=== PATIENT | female | born 1970 ===

== ENCOUNTER 2018-10-29 20:36 | Emergency (ER) | payer MEDICAID ==
[2018-10-29 20:44] VITALS: BMI 21.9
[2018-10-29 20:50] VITALS: TEMP 98; O2SAT 100
--- NOTE | 2018-10-29 21:04 | ED PDOC ---
Arrival/HPI - General Chief Complaint: Dizziness/Lightheaded Time Seen by Provider: 10/29/18 20:47 Historian: Patient - History of Present Illness Narrative History of Present Illness (Text): 10/29/18 21:05 48 year old female, whose past medical history includes SVT and anxiety, presents to the emergency department with headache dizziness and palpitations. Patient was in the ER with her critically ill sister when she began feeling lightheaded, and palpitations. Patient states she became anxious and dizzy while with her sister. Patient states she feels a pounding headache. Patient denies any fever, chills, chest pain, shortness of breath, cough, abdominal pain, vomiting, diarrhea, or any other complaints. Time/Duration: Prior to Arrival Symptom Onset: Gradual Symptom Course: Unchanged Quality: Throbbing Activities at Onset: Light, Emotional Upset Context: Other (in ED) Past Medical History - Provider Review Nursing Documentation Reviewed: Yes - Infectious Disease Hx of Infectious Diseases: None - Tetanus Immunization Tetanus Immunization: Unknown - Cardiac Hx Cardiac Disorders: Yes Hx Cardiac Arrhythmia: Yes (svt with ablation) - Pulmonary Hx Respiratory Disorders: Yes Hx Emphysema: Yes - Neurological Hx Neurological Disorder: Yes Hx Headaches: Yes - HEENT Hx HEENT Disorder: No - Renal Hx Renal Disorder: No - Endocrine/Metabolic Hx Endocrine Disorders: No - Hematological/Oncological Hx Blood Disorders: No - Integumentary Hx Dermatological Disorder: No - Musculoskeletal/Rheumatological Hx Musculoskeletal Disorders: Yes Hx Back Pain: Yes - Gastrointestinal Hx Gastrointestinal Disorders: Yes (HERNIA HIATAL,CONSTIPATION) - Genitourinary/Gynecological Hx Genitourinary Disorders: No - Psychiatric Hx Psychophysiologic Disorder: Yes Hx Anxiety: Yes Hx Substance Use: No - Surgical History Hx Cardiac Catheterization: Yes (CARDIAC ABLATION FOR SVT) Hx Cholecystectomy: Yes Hx Hysterectomy: Yes - Anesthesia Hx Anesthesia: Yes Hx Anesthesia Reactions: No Hx Malignant Hyperthermia: No - Suicidal Assessment Feels Threatened In Home Enviroment: No Family/Social History - Physician Review Nursing Documentation Reviewed: Yes Family/Social History: No Known Family HX Smoking Status: Never Smoked Hx Alcohol Use: No Hx Substance Use: No Hx Substance Use Treatment: No Allergies/Home Meds Allergies/Adverse Reactions: Allergies Iodine and Iodide Containing Produc Allergy (Verified 10/29/18 21:04) URTICARIA Home Medications: Home Meds Medication Instructions Recorded Confirmed LORazepam [Ativan] 1 tab PO DAILY PRN 10/29/18 10/29/18 QUEtiapine [SEROquel] 1 tab PO DAILY 10/29/18 10/29/18 Sertraline [Zoloft] 1 tab PO HS 10/29/18 10/29/18 diltiaZEM [Cardizem] 1 tab PO DAILY 10/29/18 10/29/18 traMADol [Ultram] 1 tab PO PRN PRN 10/29/18 10/29/18 Review of Systems - Physician Review All systems were reviewed & negative as marked: Yes - Review of Systems Constitutional: absent: Fevers Gastrointestinal: absent: Abdominal Pain Physical Exam Vital Signs Reviewed: Yes Vital Signs Temp Pulse Resp BP Pulse Ox 10/29/18 20:47 98 F 134 H 23 138/91 H 100 Temperature: Afebrile Blood Pressure: Hypertensive Pulse: Tachycardic Respiratory Rate: Normal Appearance: Positive for: Well-Appearing, Non-Toxic, Comfortable Pain Distress: None Mental Status: Positive for: Alert and Oriented X 3 - Systems Exam Head: Present: Atraumatic, Normocephalic Pupils: Present: PERRL Extroacular Muscles: Present: EOMI Conjunctiva: Present: Normal Mouth: Present: Moist Mucous Membranes Neck: Present: Normal Range of Motion Respiratory/Chest: Present: Clear to Auscultation, Good Air Exchange. No: Respiratory Distress, Accessory Muscle Use Cardiovascular: Present: Normal S1, S2, Tachycardic. No: Murmurs Abdomen: No: Tenderness, Distention, Peritoneal Signs Back: Present: Normal Inspection Upper Extremity: Present: Normal Inspection. No: Cyanosis, Edema Lower Extremity: Present: Normal Inspection. No: Edema Neurological: Present: GCS=15, CN II-XII Intact, Speech Normal Skin: Present: Warm, Dry, Normal Color. No: Rashes Psychiatric: Present: Alert, Oriented x 3, Normal Insight, Normal Concentration Medical Decision Making ED Course and Treatment: 10/29/18 21:11 Impression: 48 year old female presents with headache and dizziness. Plan: -- Tylenol -- Toradol -- Ativan -- Reglan -- Reassess and disposition Prior Visits: Notes and results from previous visits were reviewed. Progress Notes: EKG reviewed by me, shows: Sinus Tachycardia @130bpm No STT wave changes Patient states headache went away completely after medication. HR normalized. Will discharge, f/u neurology, return to ED for worsening pain, fever, vomiting, neuro deficit, or any other problem. - Scribe Statement The provider has reviewed the documentation as recorded by the Jaredibkendell Jiang Provider Scribe Attestation: All medical record entries made by the Scribe were at my direction and personally dictated by me. I have reviewed the chart and agree that the record accurately reflects my personal performance of the history, physical exam, medical decision making, and the department course for this patient. I have also personally directed, reviewed, and agree with the discharge instructions and disposition. Disposition/Present on Arrival - Present on Arrival Any Indicators Present on Arrival: No History of DVT/PE: No History of Uncontrolled Diabetes: No Urinary Catheter: No History of Decub. Ulcer: No History Surgical Site Infection Following: None - Disposition Have Diagnosis and Disposition been Completed?: Yes Diagnosis: Headache, Anxiety Disposition: HOME/ ROUTINE Disposition Time: 00:28 Patient Plan: Discharge Condition: STABLE Discharge Instructions (ExitCare): Headache, Adult, Anxiety, Adult (DC) Referrals: Dagoberto George MD [Staff Provider] - Follow up with primary Forms: OLED-T (Maltese)
[2018-10-29] MEDS ORDERED: Sodium Chloride 0.9% 1,000 ML IV STA (21:13)
[2018-10-29 21:14] VITALS: RESP 18
[2018-10-30 02:07] VITALS: BP 132/80; PULSE 110
--- NOTE | 2018-10-30 20:08 | CARD ---
APPROVED REPORT Date of service: 10/29/2018 EKG Measurement Heart [id number] <Conclusion> Sinus tachycardia Otherwise normal ECG
== END 2018-10-30 00:40 | disposition home or self-care (01) ==
LOC: ED 20:36
DX: R51 Headache (principal); F41.9 Anxiety disorder, unspecified; I47.1 Supraventricular tachycardia
CPT/HCPCS: 82948; 93005; 96374; 96375; 99285; J1885; J2060; J2765; J7030

== ENCOUNTER 2019-02-06 16:49 | Observation (INO) | payer MEDICAID ==
[2019-02-06 16:52] VITALS: BMI 23.6
[2019-02-06] MEDS ORDERED: Sodium Chloride 0.9% 1,000 ML IV STA (17:20)
[2019-02-06 17:35] LABS: BASO # 0.02 K/mm3 (0.0-2.0); BASO % 0.2 % (0.0-3.0); EOS # 0.2 (0.0-0.7); EOS % 2.3 % (1.5-5.0); HEMOGLOBIN 14.1 g/dL (12.0-16.0); LYMPH # 2.9 (1.2-3.4); LYMPH % 29.5 % (22.0-35.0); MEAN CELL VOLUME 93.8 fl (80.0-105.0); MEAN CORPUSCULAR HEMOGLOBIN 31.2 pg (25.0-35.0); MEAN CORPUSCULAR HGB CONC 33.3 g/dl (31.0-37.0); MEAN PLATELET VOLUME 10.6 fl (7.0-11.0); MONO # 0.5 (0.1-0.6); MONO % 5.5 % (1.0-6.0); RBC 4.52 10^6/uL (3.5-6.1); RED CELL DISTRIBUTION WIDTH 14.1 % (11.5-14.5); WHITE BLOOD COUNT 9.7 10^3/uL (4.5-11.0)
--- NOTE | 2019-02-06 17:37 | ED PDOC ---
Arrival/HPI - General Chief Complaint: Seizure Time Seen by Provider: 02/06/19 17:05 Historian: Patient, Family - History of Present Illness Narrative History of Present Illness (Text): 02/06/19 17:30 patient is a 48 year old female whose past medical history includes seizures, who presents to the ED with her sister s/p witnessed seizure prior to arrival. Patient's sister reports that she and patient were going up on an escalator and talking at the supermarket when patient suddenly collapsed with a 2 minute generalized tonic clonic seizure, which eventually resolved on its own. Patient reports having a history of headaches, memory issues, and seizures on and off for the past year. She states once being evaluated by a neurologist at [facility], and had an EEG done about a year ago when her symptoms first started. Per patient the neurologist couldn't find anything on the EEG, and stated that she didn't need to follow up with them. At one point she was taking Ativan for her seizures, but is no longer on the medication. Currently, patient reports feeling "out of it". She had an MRI earlier today due to her mentioned symptoms, but doesn't have the results yet. Patient denies any headaches, dizziness, neurological deficits, chest pain, sob, nausea, abdominal pain or any other complaints. Time/Duration: Prior to Arrival Symptom Onset: Sudden Symptom Course: Improving Activities at Onset: Light Context: Standing Past Medical History - Provider Review Nursing Documentation Reviewed: Yes - Infectious Disease Hx of Infectious Diseases: None - Tetanus Immunization Tetanus Immunization: Unknown - Reproductive Menopause: No - Cardiac Hx Cardiac Disorders: Yes Hx Cardiac Arrhythmia: Yes (svt with ablation) - Pulmonary Hx Respiratory Disorders: Yes Hx Emphysema: Yes - Neurological Hx Neurological Disorder: Yes Hx Headaches: Yes Hx Seizures: Yes - HEENT Hx HEENT Disorder: No - Renal Hx Renal Disorder: No - Endocrine/Metabolic Hx Endocrine Disorders: No - Hematological/Oncological Hx Blood Disorders: No - Integumentary Hx Dermatological Disorder: No - Musculoskeletal/Rheumatological Hx Musculoskeletal Disorders: Yes Hx Back Pain: Yes - Gastrointestinal Hx Gastrointestinal Disorders: Yes (HERNIA HIATAL,CONSTIPATION) - Genitourinary/Gynecological Hx Genitourinary Disorders: No - Psychiatric Hx Psychophysiologic Disorder: Yes Hx Anxiety: Yes Hx Substance Use: No - Surgical History Hx Cardiac Catheterization: Yes (CARDIAC ABLATION FOR SVT) Hx Cholecystectomy: Yes Hx Hysterectomy: Yes - Anesthesia Hx Anesthesia: Yes Hx Anesthesia Reactions: No Hx Malignant Hyperthermia: No - Suicidal Assessment Feels Threatened In Home Enviroment: No Family/Social History - Physician Review Nursing Documentation Reviewed: Yes Family/Social History: No Known Family HX Smoking Status: Never Smoked Hx Alcohol Use: No Hx Substance Use: No Hx Substance Use Treatment: No Allergies/Home Meds Allergies/Adverse Reactions: Allergies Iodine and Iodide Containing Produc Allergy (Verified 10/29/18 21:04) URTICARIA Home Medications: Home Meds Medication Instructions Recorded Confirmed LORazepam [Ativan] 1 tab PO DAILY PRN 10/29/18 10/29/18 QUEtiapine [SEROquel] 1 tab PO DAILY 10/29/18 10/29/18 Sertraline [Zoloft] 1 tab PO HS 10/29/18 10/29/18 diltiaZEM [Cardizem] 1 tab PO DAILY 10/29/18 10/29/18 traMADol [Ultram] 1 tab PO PRN PRN 10/29/18 10/29/18 Review of Systems - Physician Review All systems were reviewed & negative as marked: Yes - Review of Systems Constitutional: absent: Fevers Respiratory: absent: SOB Cardiovascular: absent: Chest Pain, MARTIN Gastrointestinal: absent: Abdominal Pain, Nausea, Vomiting Neurological: Seizure. absent: Headache, Dizziness, Other (neurological deficits) Physical Exam Vital Signs Reviewed: Yes Blood Pressure: Normal Pulse: Tachycardic Appearance: Positive for: Well-Appearing Mental Status: Positive for: Alert and Oriented X 3 - Systems Exam Head: Present: Atraumatic, Normocephalic Pupils: Present: PERRL Extroacular Muscles: Present: EOMI Conjunctiva: Present: Normal Mouth: Present: Moist Mucous Membranes. No: Other (no tongue laceration) Neck: Present: Normal Range of Motion Respiratory/Chest: Present: Clear to Auscultation, Good Air Exchange. No: Respiratory Distress, Accessory Muscle Use Cardiovascular: Present: Normal S1, S2, Tachycardic. No: Murmurs Abdomen: No: Tenderness, Distention, Peritoneal Signs Genitourinary/Pelvic Exam: No: Other (no incontinence) Back: Present: Normal Inspection Upper Extremity: Present: Normal Inspection. No: Cyanosis, Edema Lower Extremity: Present: Normal Inspection. No: Edema Neurological: Present: GCS=15, CN II-XII Intact, Speech Normal Skin: Present: Warm, Dry, Normal Color. No: Rashes Psychiatric: Present: Alert, Oriented x 3, Normal Insight, Normal Concentration Medical Decision Making ED Course and Treatment: 02/06/19 17:39 Impression: 48 year old female who presents to the ED with her sister s/p witnessed seizure prior to arrival. Plan: -- Head CT without contrast -- Labs -- Urinalysis -- Toradol -- IV fluids -- Reassess and disposition Prior Visits: Notes and results from previous visits were reviewed. Progress Notes: Patient ntoed to be tachycardic to 140's. EKG done, patient in sinus tach. 1L NS bolus initiated. Labs and CT ordered and completed. Patient began to complain of an "acid reflux" feeling in her chest. GI cocktail ordered. Given continued tachycardia plus this new complaint of possible chest pain, troponin and d dimer ordered as well. Patient denies any dyspnea. Lungs are clear. Results reviewed and discussed with patient. She complains of headache and continued chest pain. Toradol ivp given. Case discussed with Dr. Gomez admitting for PMD Dr. Juárez, does not take Medicaid patients. Case discussed with Dr. Miller and medical services coordinator, accepted to hospitalist service. Patient had no seizures during entire emergency department course, AAOx3 throughout. - Lab Interpretations I have reviewed the lab results: Yes - RAD Interpretation Narrative RAD Interpretations (Text): 02/06/19 18:[address] without contrast: Dictator : Prachi Reardon MD IMPRESSION: No acute intracranial pathology identified. Radiology Orders: 02/06/19 17:19 HEAD W/O CONTRAST [CT] Stat Clinical Professor: Radiologist - EKG Interpretation EKG Interpretation (Text): 1404- NSR, rate 143, normal axis, normal intervals, no ST elevation Interpreted by ED Physician: Yes Type: 12 lead EKG - Medication Orders Current Medication Orders: Sodium Chloride (Sodium Chloride 0.9%) 1,000 mls @ 999 mls/hr IV .Q1H1M STA Stop: 02/06/19 18:20 Last Admin: 02/06/19 17:29 Dose: 999 mls/hr eMAR Start Stop Document 02/06/19 17:29 MA (Rec: 02/06/19 17:29 [place] [facility] [id number] Intravenous Solution Start Date 02/06/19 Start Time 17:29 Discontinued Medications Ketorolac Tromethamine (Toradol) 30 mg IVP STAT STA Stop: 02/06/19 17:21 Last Admin: 02/06/19 17:28 Dose: 30 mg MAR Pain Assessment Document 02/06/19 17:28 MA (Rec: 02/06/19 17:29 [place] [facility] [id number] Pain Reassessment Is this a pain reassessment? Yes Sleep Is patient sleeping during reassessment? 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 I have reviewed the chart and agree that the record accurately reflects my personal performance of the history, physical exam, medical decision making, and the department course for this patient. I have also personally directed, reviewed, and agree with the discharge instructions and disposition. Disposition/Present on Arrival - Present on Arrival Any Indicators Present on Arrival: No History of DVT/PE: No History of Uncontrolled Diabetes: No Urinary Catheter: No History of Decub. Ulcer: No History Surgical Site Infection Following: None - Disposition Have Diagnosis and Disposition been Completed?: Yes Diagnosis: Seizure, Tachycardia, Chest pain Disposition: HOSPITALIZED Disposition Time: 20:00 Condition: STABLE
[2019-02-06 17:43] LABS: ALB/GLOB RATIO 1.5 (1.1-1.8); ALBUMIN 4.9 g/dL (3.0-4.8); ALT/SGPT 20 U/L (7-56); AST/SGOT 37 U/L (14-36); BLOOD UREA NITROGEN 12 mg/dL (7-21); CALCIUM 9.4 mg/dL (8.4-10.5); GFR NON-AFRICAN AMERICAN > 60
--- NOTE | 2019-02-06 18:03 | CT ---
Date of service: 02/06/2019 PROCEDURE: CT HEAD WITHOUT CONTRAST. HISTORY: seizure COMPARISON: None available. TECHNIQUE: Axial computed tomography images were obtained through the head/brain without intravenous contrast. Radiation dose: Total exam DLP = 929.09 mGy-cm. This CT exam was performed using one or more of the following dose reduction techniques: Automated exposure control, adjustment of the mA and/or kV according to patient size, and/or use of iterative reconstruction technique. FINDINGS: HEMORRHAGE: No intracranial hemorrhage. BRAIN: No mass effect or edema. The lan-white matter differentiation appears intact. Please note that MRI with diffusion imaging is more sensitive in the detection of acute ischemic event. VENTRICLES: No hydrocephalus. CALVARIUM: Unremarkable. PARANASAL SINUSES: Unremarkable as visualized. No significant inflammatory changes. MASTOID AIR CELLS: Unremarkable as visualized. No inflammatory changes. OTHER FINDINGS: None. IMPRESSION: No acute intracranial pathology identified.
[2019-02-06] MEDS ORDERED: Alum-Mag Hydrox-Simethicone Susp (30 mL) PO STA (18:52)
[2019-02-06] MEDS ORDERED: Atrop/Hyosc/Scopal/PB Elixir (120 ml) PO STA (18:52)
--- NOTE | 2019-02-06 21:13 | CARD ---
APPROVED REPORT Date of service: 02/06/2019 EKG Measurement Heart [id number] [place] [id number] <Conclusion> Sinus tachycardia Possible Left atrial enlargement Nonspecific ST and T wave abnormality Abnormal ECG
[2019-02-06 21:37] LABS: PH,URINE 6.5 (4.7-8.0); URINE BILIRUBIN NEGATIVE (NEGATIVE); URINE BLOOD NEGATIVE (NEGATIVE); URINE GLUCOSE (UA) NEGATIVE (NEGATIVE); URINE LEUKOCYTE ESTERASE NEGATIVE Leu/uL (NEGATIVE); URINE PROTEIN NEGATIVE mg/dL (<30 mg/dL); URINE UROBILINOGEN 0.2 E.U./dL (<1 E.U./dL)
[2019-02-06 21:44] LABS: URINE APPEARANCE CLEAR (CLEAR); URINE COLOR YELLOW (YELLOW)
[2019-02-06] MEDS ORDERED: levETIRAcetam 1,000 MG in Sodium Chloride 0.9% 100 ML IVPB SCH (22:00)
[2019-02-06] MEDS: levETIRAcetam 1000mg/100ml NS 100 ML IV SCH (22:54)
--- NOTE | 2019-02-07 00:02 | CP.PCM.HP ---
<Bob Barros - Last Filed: 02/07/19 00:50> History of Present Illness - History of Present Illness History of Present Illness: PGY-1 Medicine H&P for Dr. Miller CC: Seizures HPI: Patient is a 48 year old female with a past medical history of seizures, SVT (s/p ablation), insomnia, and depression, presenting with a witnessed seizure prior to arrival. Patient's sister reports that she and patient were going up on an escalator at the [facility] when patient suddenly collapsed with a 2 minute generalized tonic-clonic seizure, which eventually resolved on its own. Patient's sister states that she was confused right after she had the seizure. Patient denies tongue biting, bladder or bowel incontinence. Patient's sister states that patient might have hit her head when she had the seizure episode. Patient also reports having a history of headaches, memory issues, and seizures on and off for the past year. She states once being evaluated by a neurologist at [facility] and had a normal EEG about a year ago when her symptoms first started. Patient states that she was previously on daily Ativan but the neurologist stopped it. She states that she is under a lot of stress at this time because her sister last week and she had been denied for disability. She also states that she has not slept for 3 days straight. She complains of chronic insomnia and sometimes can go on for 3 or 4 days without sleep. Patient denies any fevers, chills, headaches, dizziness, neurological deficits, chest pain, shortness of breath, nausea, vomiting, abdominal pain, di arrhea, or urinary symptoms. PMH: seizures, depression, SVT (cardiac catheter ablation in 2001), insomnia PSH: cholecystectomy, hysterectomy, cardiac catheter ablation, right breast mass removal, removal of malignant skin cancer on right shoulder. Allergies: Iodine Social Hx: denies tobacco, alcohol, or drug use. Family Hx: Mother has diabetes. Sister of brain cancer. Medications: See DEC PMD: Neurologist: Dr. Castro in [facility] Pharmacy: [address] Present on Admission - Present on Admission Any Indicators Present on Admission: No History of DVT/PE: No History of Uncontrolled Diabetes: No Urinary Catheter: No Decubitus Ulcer Present: No Past Patient History - Infectious Disease Hx of Infectious Diseases: None - Tetanus Immunizations Tetanus Immunization: Unknown - Past Medical History & Family History Past Medical History?: Yes - Past Social History Smoking Status: Never Smoked - CARDIAC Hx Cardiac Disorders: Yes Other/Comment: SVT - PULMONARY Hx Respiratory Disorders: Yes Hx Emphysema: Yes - NEUROLOGICAL Hx Neurological Disorder: Yes Hx Seizures: Yes - HEENT Hx HEENT Problems: No - RENAL Hx Chronic Kidney Disease: No - ENDOCRINE/METABOLIC Hx Endocrine Disorders: No - HEMATOLOGICAL/ONCOLOGICAL Hx Blood Disorders: No - INTEGUMENTARY Hx Squamous Cell: Yes Other/Comment: malignant mole on r shoulder - MUSCULOSKELETAL/RHEUMATOLOGICAL Hx Musculoskeletal Disorders: Yes Hx Falls: Yes - GASTROINTESTINAL Hx Gastrointestinal Disorders: No - GENITOURINARY/GYNECOLOGICAL Hx Genitourinary Disorders: No - PSYCHIATRIC Hx Psychophysiologic Disorder: Yes Hx Anxiety: Yes - SURGICAL HISTORY Hx Surgeries: Yes Other/Comment: breast mass removal, r breast - ANESTHESIA Hx Anesthesia: Yes Hx Anesthesia Reactions: No Hx Malignant Hyperthermia: No Meds Allergies/Adverse Reactions: Allergies Allergy/AdvReac Type Severity Reaction Status Date / Time Iodine and Iodide Containing Allergy URTICARIA Verified 10/29/18 21:04 Produc Physical Exam - Constitutional Appears: Non-toxic, No Acute Distress - Head Exam Head Exam: ATRAUMATIC, NORMAL INSPECTION - Eye Exam Eye Exam: EOMI, Normal appearance Pupil Exam: NORMAL ACCOMODATION - ENT Exam ENT Exam: Mucous Membranes Moist - Neck Exam Neck exam: Positive for: Normal Inspection - Respiratory Exam Respiratory Exam: Clear to Auscultation Bilateral. absent: Accessory Muscle Use, Rales, Rhonchi, Wheezes, Respiratory Distress - Cardiovascular Exam Cardiovascular Exam: Tachycardia, +S1, +S2. absent: Gallop, Rubs, Systolic Murmur - GI/Abdominal Exam GI & Abdominal Exam: Normal Bowel Sounds, Soft. absent: Distended, Firm, Guarding, Tenderness - Extremities Exam Extremities exam: Positive for: normal inspection. Negative for: calf tenderness, pedal edema - Back Exam Back exam: NORMAL INSPECTION - Neurological Exam Neurological exam: Alert, CN II-XII Intact, Oriented x3 - Psychiatric Exam Psychiatric exam: Flat Affect - Skin Skin Exam: Dry, Intact, Normal Color, Warm Results - Vital Signs Recent Vital Signs: Last Vital Signs Temp Pulse 140 H 02/06/19 22:54 Resp 20 02/06/19 21:49 BP 136/86 02/06/19 22:54 Pulse Ox 99 02/06/19 21:30 - Labs Result Diagrams: 02/06/19 17:20 02/06/19 17:20 Labs: Laboratory Results - last 24 hr 02/06/19 02/06/19 02/06/19 17:20 17:20 17:20 WBC 9.7 RBC 4.52 Hgb 14.1 Hct 42.4 MCV 93.8 MCH 31.2 MCHC 33.3 RDW 14.1 Plt Count 219 MPV 10.6 Neut % (Auto) 62.5 Lymph % (Auto) 29.5 [place] % (Auto) 5.5 Eos % (Auto) 2.3 Baso % (Auto) 0.2 Lymph # (Auto) 2.9 [place] # (Auto) 0.5 Eos # (Auto) 0.2 Baso # (Auto) 0.02 Absolute Neuts (auto) 6.04 D-Dimer, Quantitative 228 Sodium 138 Potassium 4.1 Chloride 100 Carbon Dioxide 25 Anion Gap 18 BUN 12 Creatinine 0.7 Est GFR ( Amer) > 60 Est GFR (Non-Af Amer) > 60 Random Glucose 95 Calcium 9.4 Phosphorus 3.2 Magnesium 1.9 Total Bilirubin 0.3 AST 37 H ALT 20 Alkaline Phosphatase 132 H Troponin I Total Protein 8.0 Albumin 4.9 H Globulin 3.2 Albumin/Globulin Ratio 1.5 Urine Color Urine Appearance Urine pH Ur Specific [place] Urine Protein Urine Glucose (UA) Urine Ketones Urine Blood Urine Nitrate Urine Bilirubin Urine Urobilinogen Ur Leukocyte Esterase 02/06/19 02/06/19 17:20 21:30 WBC RBC Hgb Hct MCV MCH MCHC RDW Plt Count MPV Neut % (Auto) Lymph % (Auto) [place] % (Auto) Eos % (Auto) Baso % (Auto) Lymph # (Auto) [place] # (Auto) Eos # (Auto) Baso # (Auto) Absolute Neuts (auto) D-Dimer, Quantitative Sodium Potassium Chloride Carbon Dioxide Anion Gap BUN Creatinine Est GFR ( Amer) Est GFR (Non-Af Amer) Random Glucose Calcium Phosphorus Magnesium Total Bilirubin AST ALT Alkaline Phosphatase Troponin I < 0.01 Total Protein Albumin Globulin Albumin/Globulin Ratio Urine Color Yellow Urine Appearance Clear Urine pH 6.5 Ur Specific [place] 1.010 Urine Protein Negative Urine Glucose (UA) Negative Urine Ketones Negative Urine Blood Negative Urine Nitrate Negative Urine Bilirubin Negative Urine Urobilinogen 0.2 Ur Leukocyte Esterase Negative Assessment & Plan - Assessment and Plan (Free Text) Assessment: Patient is a 48 year old female with a past medical history of seizures, SVT (s/ p ablation), insomnia, and depression, presenting with seizures. Plan: Seizures - CT head: No acute findings - Patient's sister has a CD of her brain MRI that was done on 02/06/2019 - Start Keppra 1000mg IV BID - Neurology consulted, Dr. George - Seizure, fall, aspiration precautions - Neurochecks Q2H - Follow up vitamin B12 level - Follow up urine drug screen Hx of supraventricular tachycardia s/p ablation - EKG: Sinus tachycardia @ 143 - Follow up repeat EKG - Start Cardizem 30mg PO Q8H - Patient takes Cardizem 100mg PO QD at home - Troponin: <0.01 X 1 - Follow up repeat troponin - Follow up TSH, free T4 levels Prophylaxis: - DVT: SCD's - GI: Not indicated Patient seen and case discussed with attending, Dr. Miller. Bob Barros, PGY-1 <Carly Miller - Last Filed: 02/07/19 06:25> Results - Vital Signs Recent Vital Signs: Last Vital Signs Temp 98.1 F 02/06/19 21:49 Pulse 105 H 02/07/19 05:44 Resp 20 02/07/19 05:19 BP 102/60 02/07/19 05:44 Pulse Ox 99 02/06/19 21:30 - Labs Result Diagrams: 02/06/19 17:20 02/06/19 17:20 Labs: Laboratory Results - last 24 hr 02/06/19 02/06/19 02/06/19 17:20 17:20 17:20 WBC 9.7 RBC 4.52 Hgb 14.1 Hct 42.4 MCV 93.8 MCH 31.2 MCHC 33.3 RDW 14.1 Plt Count 219 MPV 10.6 Neut % (Auto) 62.5 Lymph % (Auto) 29.5 [place] % (Auto) 5.5 Eos % (Auto) 2.3 Baso % (Auto) 0.2 Lymph # (Auto) 2.9 [place] # (Auto) 0.5 Eos # (Auto) 0.2 Baso # (Auto) 0.02 Absolute Neuts (auto) 6.04 D-Dimer, Quantitative 228 Sodium 138 Potassium 4.1 Chloride 100 Carbon Dioxide 25 Anion Gap 18 BUN 12 Creatinine 0.7 Est GFR ( Amer) > 60 Est GFR (Non-Af Amer) > 60 Random Glucose 95 Calcium 9.4 Phosphorus 3.2 Magnesium 1.9 Total Bilirubin 0.3 AST 37 H ALT 20 Alkaline Phosphatase 132 H Troponin I Total Protein 8.0 Albumin 4.9 H Globulin 3.2 Albumin/Globulin Ratio 1.5 Urine Color Urine Appearance Urine pH Ur Specific [place] Urine Protein Urine Glucose (UA) Urine Ketones Urine Blood Urine Nitrate Urine Bilirubin Urine Urobilinogen Ur Leukocyte Esterase 02/06/19 02/06/19 17:20 21:30 WBC RBC Hgb Hct MCV MCH MCHC RDW Plt Count MPV Neut % (Auto) Lymph % (Auto) [place] % (Auto) Eos % (Auto) Baso % (Auto) Lymph # (Auto) [place] # (Auto) Eos # (Auto) Baso # (Auto) Absolute Neuts (auto) D-Dimer, Quantitative Sodium Potassium Chloride Carbon Dioxide Anion Gap BUN Creatinine Est GFR ( Amer) Est GFR (Non-Af Amer) Random Glucose Calcium Phosphorus Magnesium Total Bilirubin AST ALT Alkaline Phosphatase Troponin I < 0.01 Total Protein Albumin Globulin Albumin/Globulin Ratio Urine Color Yellow Urine Appearance Clear Urine pH 6.5 Ur Specific [place] 1.010 Urine Protein Negative Urine Glucose (UA) Negative Urine Ketones Negative Urine Blood Negative Urine Nitrate Negative Urine Bilirubin Negative Urine Urobilinogen 0.2 Ur Leukocyte Esterase Negative Attending/Attestation - Attestation I have personally seen and examined this patient.: Yes I have fully participated in the care of the patient.: Yes I have reviewed all pertinent clinical information: Yes Notes (Text): 02/07/19 06:22 Seen and examined. Discussed with resident. Gives contradicting history. for example, she said that she stays up 3 nights on a role then said ativan helps when asked why taking ativan the. Has H/O SVT and asked her if CP at this time is similar to CP experienced during previous SVT episode and answered no then after sh will states she often has CP a/w SVT!!
[2019-02-07 06:45] LABS: BASO # 0.02 K/mm3 (0.0-2.0); BASO % 0.2 % (0.0-3.0); EOS # 0.2 (0.0-0.7); EOS % 1.8 % (1.5-5.0); HEMOGLOBIN 12.7 g/dL (12.0-16.0); LYMPH # 1.6 (1.2-3.4); LYMPH % 16.2 % (22.0-35.0); MEAN CELL VOLUME 92.1 fl (80.0-105.0); MEAN CORPUSCULAR HEMOGLOBIN 30.5 pg (25.0-35.0); MEAN CORPUSCULAR HGB CONC 33.2 g/dl (31.0-37.0); MEAN PLATELET VOLUME 10.2 fl (7.0-11.0); MONO # 0.5 (0.1-0.6); MONO % 5.5 % (1.0-6.0); RBC 4.16 10^6/uL (3.5-6.1); RED CELL DISTRIBUTION WIDTH 13.8 % (11.5-14.5); WHITE BLOOD COUNT 9.6 10^3/uL (4.5-11.0)
[2019-02-07 06:59] LABS: ALB/GLOB RATIO 1.4 (1.1-1.8); ALBUMIN 3.9 g/dL (3.0-4.8); ALT/SGPT 20 U/L (7-56); AST/SGOT 37 U/L (14-36); BLOOD UREA NITROGEN 8 mg/dL (7-21); CALCIUM 8.3 mg/dL (8.4-10.5); GFR NON-AFRICAN AMERICAN > 60
[2019-02-07 07:01] LABS: TROPONIN I < 0.01 ng/mL
[2019-02-07 07:06] LABS: FREE T4 0.97 ng/dL (0.78-2.19)
--- NOTE | 2019-02-07 08:57 | CP.PCM.CON ---
History of Present Illness - History of Present Illness History of Present Illness: Amrit Matos DO, PGY-2: Neurology Consult Note for Dr. George 48 year old female with a past medical history depression, benzodiazepine dependence, SVT s/p ablation who presented to [facility] [place] suffering from a seizure at 4:00 PM yesterday. Further questioning reveals she did not take her Ativan for two days. She has been taking Ativan for more than 10 years. She takes 1 mg at bedtime and 1 mg when she first wakes up. She was informed by her psychiatrist, Dr. Hutchinson that if she does not take her Ativan as prescribed she can have a seizure. She was worked-up by a neurologist in the past for her seizures and was not started on any AED. The seizures were witnessed by her sister. They were generalized, tonic- clonic and lasted for two minutes. She was post-ictal for a few hours after the seizure. She admits to having a headache two to three days prior to seizure, but denies any feelings of lightheadedness, palpitations, or a rising epigastric sensation immediately before the seizure. She denies recent illness, fever, chil ls, nausea, vomiting, loss of appetite, chills, unilateral weakness or numbness. She also reports blacking out spells and subjective memory impairment and a family history of seizures. When her family was present at bedside, she reports having three seizures yesterday. Otherwise, a 12 point ROS is negative except as mentioned above. PMH: depression, insomnia, benzodiazepine dependence, SVT s/p ablation PSH: cholecystectomy, hysterectomy, cardiac catheter ablation, right breast mass removal, removal of malignant skin cancer on right shoulder. Allergies: Iodine Social Hx: denies tobacco, alcohol, or drug use. Family Hx: Mother has diabetes. Sister of brain cancer. Review of Systems - Review of Systems All systems: reviewed and no additional remarkable complaints except (as per HPI) Past Patient History - Infectious Disease Hx of Infectious Diseases: None - Tetanus Immunizations Tetanus Immunization: Unknown - Past Medical History & Family History Past Medical History?: Yes - Past Social History Smoking Status: Never Smoked - CARDIAC Hx Cardiac Disorders: Yes Hx Cardia Arrhythmia: Yes (svt with ablation) - PULMONARY Hx Respiratory Disorders: Yes Hx Emphysema: Yes - NEUROLOGICAL Hx Neurological Disorder: Yes Hx Seizures: Yes - HEENT Hx HEENT Problems: No - RENAL Hx Chronic Kidney Disease: No - ENDOCRINE/METABOLIC Hx Endocrine Disorders: No - HEMATOLOGICAL/ONCOLOGICAL Hx Blood Disorders: No - INTEGUMENTARY Hx Dermatological Problems: No - MUSCULOSKELETAL/RHEUMATOLOGICAL Hx Musculoskeletal Disorders: Yes Hx Back Pain: Yes - GASTROINTESTINAL Hx Gastrointestinal Disorders: Yes (HERNIA HIATAL,CONSTIPATION) - GENITOURINARY/GYNECOLOGICAL Hx Genitourinary Disorders: No - PSYCHIATRIC Hx Psychophysiologic Disorder: Yes Hx Anxiety: Yes Hx Substance Use: No - SURGICAL HISTORY Hx Cardiac Catheterization: Yes (CARDIAC ABLATION FOR SVT) Hx Cholecystectomy: Yes Hx Hysterectomy: Yes - ANESTHESIA Hx Anesthesia: Yes Hx Anesthesia Reactions: No Hx Malignant Hyperthermia: No Meds Allergies/Adverse Reactions: Allergies Allergy/AdvReac Type Severity Reaction Status Date / Time Iodine and Iodide Containing Allergy URTICARIA Verified 10/29/18 21:04 Produc - Medications Medications: Current Medications Acetaminophen (Tylenol 325mg Tab) 650 mg PO Q6H PRN PRN Reason: Headache Last Admin: 02/06/19 21:37 Dose: 650 mg Diltiazem HCl (Cardizem) 30 mg PO Q8 VINNY Last Admin: 02/07/19 05:44 Dose: Not Given Famotidine (Pepcid) 40 mg PO HS PRN PRN Reason: Heartburn Levetiracetam (Keppra 1000mg/100ml Ns) 100 mls @ 460 mls/hr IV Q12 VINNY Last Admin: 02/06/19 22:54 Dose: 460 mls/hr Ketorolac Tromethamine (Toradol) 15 mg IVP Q6H PRN PRN Reason: Pain, moderate (4-7) Lorazepam (Ativan) 1 mg PO HS VINNY; Protocol Last Admin: 02/06/19 23:06 Dose: 1 mg Lorazepam (Ativan) 2 mg IVP Q6H PRN; Protocol PRN Reason: Seizure activity Last Admin: 02/06/19 22:31 Dose: 2 mg Physical Exam - Constitutional Appears: Well, Non-toxic - Head Exam Head Exam: ATRAUMATIC, NORMOCEPHALIC - Eye Exam Eye Exam: EOMI, Normal appearance - ENT Exam ENT Exam: Mucous Membranes Moist - Neck Exam Neck exam: Positive for: Normal Inspection - Respiratory Exam Respiratory Exam: NORMAL BREATHING PATTERN. absent: Accessory Muscle Use - Cardiovascular Exam Cardiovascular Exam: RRR, +S1, +S2 - GI/Abdominal Exam GI & Abdominal Exam: Normal Bowel Sounds, Soft - Extremities Exam Extremities exam: Positive for: normal inspection. Negative for: calf tenderness - Neurological Exam Neurological exam: Alert, CN II-XII Intact, Oriented x3 - Psychiatric Exam Psychiatric exam: Normal Affect, Normal Mood - Skin Skin Exam: Dry, Intact, Normal Color, Warm Results - Vital Signs Recent Vital Signs: Last Vital Signs Temp 98.1 F 02/07/19 08:40 Pulse 100 H 02/07/19 08:40 Resp 18 02/07/19 08:40 BP 102/60 02/07/19 08:40 Pulse Ox 99 02/07/19 08:40 - Labs Result Diagrams: 02/07/19 06:00 02/07/19 06:00 Labs: Laboratory Results - last 24 hr 02/06/19 02/06/19 02/06/19 17:20 17:20 17:20 WBC 9.7 RBC 4.52 Hgb 14.1 Hct 42.4 MCV 93.8 MCH 31.2 MCHC 33.3 RDW 14.1 Plt Count 219 MPV 10.6 Neut % (Auto) 62.5 Lymph % (Auto) 29.5 [place] % (Auto) 5.5 Eos % (Auto) 2.3 Baso % (Auto) 0.2 Lymph # (Auto) 2.9 [place] # (Auto) 0.5 Eos # (Auto) 0.2 Baso # (Auto) 0.02 Absolute Neuts (auto) 6.04 D-Dimer, Quantitative 228 Sodium 138 Potassium 4.1 Chloride 100 Carbon Dioxide 25 Anion Gap 18 BUN 12 Creatinine 0.7 Est GFR ( Amer) > 60 Est GFR (Non-Af Amer) > 60 Random Glucose 95 Calcium 9.4 Phosphorus 3.2 Magnesium 1.9 Total Bilirubin 0.3 AST 37 H ALT 20 Alkaline Phosphatase 132 H Troponin I Total Protein 8.0 Albumin 4.9 H Globulin 3.2 Albumin/Globulin Ratio 1.5 Free T4 TSH 3rd Generation Urine Color Urine Appearance Urine pH Ur Specific [place] Urine Protein Urine Glucose (UA) Urine Ketones Urine Blood Urine Nitrate Urine Bilirubin Urine Urobilinogen Ur Leukocyte Esterase 02/06/19 02/06/19 02/07/19 17:20 21:30 06:00 WBC 9.6 RBC 4.16 Hgb 12.7 Hct 38.3 MCV 92.1 MCH 30.5 MCHC 33.2 RDW 13.8 Plt Count 180 MPV 10.2 Neut % (Auto) 76.3 H Lymph % (Auto) 16.[address] [place] % (Auto) 5.5 Eos % (Auto) 1.8 Baso % (Auto) 0.2 Lymph # (Auto) 1.6 [place] # (Auto) 0.5 Eos # (Auto) 0.2 Baso # (Auto) 0.02 Absolute Neuts (auto) 7.29 H D-Dimer, Quantitative Sodium Potassium Chloride Carbon Dioxide Anion Gap BUN Creatinine Est GFR ( Amer) Est GFR (Non-Af Amer) Random Glucose Calcium Phosphorus Magnesium Total Bilirubin AST ALT Alkaline Phosphatase Troponin I < 0.01 Total Protein Albumin Globulin Albumin/Globulin Ratio Free T4 TSH 3rd Generation Urine Color Yellow Urine Appearance Clear Urine pH 6.5 Ur Specific [place] 1.010 Urine Protein Negative Urine Glucose (UA) Negative Urine Ketones Negative Urine Blood Negative Urine Nitrate Negative Urine Bilirubin Negative Urine Urobilinogen 0.2 Ur Leukocyte Esterase Negative 02/07/19 02/07/19 06:00 06:00 WBC RBC Hgb Hct MCV MCH MCHC RDW Plt Count MPV Neut % (Auto) Lymph % (Auto) [place] % (Auto) Eos % (Auto) Baso % (Auto) Lymph # (Auto) [place] # (Auto) Eos # (Auto) Baso # (Auto) Absolute Neuts (auto) D-Dimer, Quantitative Sodium 139 Potassium 4.0 Chloride 107 Carbon Dioxide 28 Anion Gap 8 L BUN 8 Creatinine 0.6 L Est GFR ( Amer) > 60 Est GFR (Non-Af Amer) > 60 Random Glucose 98 Calcium 8.3 L Phosphorus Magnesium 2.1 Total Bilirubin 0.3 AST 37 H ALT 20 Alkaline Phosphatase 97 Troponin I < 0.01 Total Protein 6.7 Albumin 3.9 Globulin 2.8 Albumin/Globulin Ratio 1.4 Free T4 0.97 TSH 3rd Generation 0.93 Urine Color Urine Appearance Urine pH Ur Specific [place] Urine Protein Urine Glucose (UA) Urine Ketones Urine Blood Urine Nitrate Urine Bilirubin Urine Urobilinogen Ur Leukocyte Esterase Assessment & Plan - Assessment and Plan (Free Text) Assessment: 48 year old female with a past medical history of depression, insomnia, chronic benzodiazepine use and SVT s/p ablatio who presented after having a 2-3 generalized, tonic clonic seizure in the setting of not taking her Ativan (for which she has been on for ten years) in two days time. Plan: 1) Seizures likely secondary to Benzodiazepine withdrawal - Patient reports obtaining MRI yesterday at [facility] ED coincidentally; sister informed to bring the disc with her at her earliest convenienve - Counselled patient on importance of taking her medications as directed - Starting patient on Trileptal 300 mg q12; will monitor response - Will obtain Video EEG 24 hour STAT Case was reviewed and discussed with attending physician, Dr. George
[2019-02-07] MEDS: levETIRAcetam 1000mg/100ml NS 100 ML IV SCH (09:17)
[2019-02-07] MEDS ORDERED: QUETIAPINE PO SCH (10:00)
[2019-02-07 12:44] LABS: CK-MB 1.2 ng/mL (0.0-3.6)
[2019-02-07 12:56] LABS: FOLATE 13.4 ng/mL
[2019-02-07] MEDS ORDERED: Alum-Mag Hydrox-Simethicone Susp (30 mL) PO ONE (13:33)
[2019-02-07 16:19] VITALS: RESP 20
--- NOTE | 2019-02-07 18:58 | CARD ---
APPROVED REPORT Date of service: 02/07/2019 EKG Measurement Heart [id number] <Conclusion> Normal sinus rhythm Normal ECG
[2019-02-08 06:52] LABS: BASO # 0.02 K/mm3 (0.0-2.0); BASO % 0.2 % (0.0-3.0); EOS # 0.2 (0.0-0.7); EOS % 2.4 % (1.5-5.0); HEMOGLOBIN 13.1 g/dL (12.0-16.0); LYMPH # 2.1 (1.2-3.4); LYMPH % 24.6 % (22.0-35.0); MEAN CORPUSCULAR HEMOGLOBIN 30.1 pg (25.0-35.0); MEAN CORPUSCULAR HGB CONC 32.8 g/dl (31.0-37.0); MEAN PLATELET VOLUME 10.1 fl (7.0-11.0); MONO # 0.6 (0.1-0.6); MONO % 6.7 % (1.0-6.0); RBC 4.35 10^6/uL (3.5-6.1); RED CELL DISTRIBUTION WIDTH 13.7 % (11.5-14.5); WHITE BLOOD COUNT 8.7 10^3/uL (4.5-11.0)
[2019-02-08 07:06] LABS: ALB/GLOB RATIO 1.4 (1.1-1.8); ALBUMIN 4.1 g/dL (3.0-4.8); ALT/SGPT 22 U/L (7-56); AST/SGOT 36 U/L (14-36); BLOOD UREA NITROGEN 8 mg/dL (7-21); CALCIUM 8.7 mg/dL (8.4-10.5); GFR NON-AFRICAN AMERICAN > 60
[2019-02-08 08:18] VITALS: O2SAT 99
--- NOTE | 2019-02-08 08:51 | CP.PCM.PN ---
Subjective - Date & Time of Evaluation Date of Evaluation: 02/08/19 Time of Evaluation: 07:50 - Subjective Subjective: Amrit Matos DO, PGY-2: Neurology Progress Note for Dr. George Patient was seen and examined at bedside. Video EEG is running. Patient reports not sleeping well overnight. She denies having any seizure like episodes in the interim. She endorses no other complaints. Nurse reports patient was fine overnight. Objective - Vital Signs/Intake and Output Vital Signs (last 24 hours): Temp Pulse Resp BP Pulse Ox 97.3 F L 96 H 20 125/87 99 02/08/19 06:00 02/08/19 06:00 02/08/19 06:00 02/08/19 06:00 02/08/19 06:00 - Medications Medications: Current Medications Acetaminophen (Tylenol 325mg Tab) 650 mg PO Q6H PRN PRN Reason: Headache Last Admin: 02/07/19 18:29 Dose: 650 mg Diltiazem HCl (Cardizem) 30 mg PO Q8 VINNY Last Admin: 02/08/19 05:49 Dose: 30 mg Famotidine (Pepcid) 40 mg PO HS PRN PRN Reason: Heartburn Last Admin: 02/07/19 22:14 Dose: 40 mg Lorazepam (Ativan) 1 mg PO HS VINNY; Protocol Last Admin: 02/07/19 22:14 Dose: 1 mg Lorazepam (Ativan) 2 mg IVP Q6H PRN; Protocol PRN Reason: Seizure activity Last Admin: 02/06/19 22:31 Dose: 2 mg Oxcarbazepine (Trileptal) 300 mg PO Q12 VINNY; Protocol Last Admin: 02/07/19 22:14 Dose: 300 mg - Labs Labs: 02/08/19 06:20 02/08/19 06:20 - Constitutional Appears: Well, Non-toxic - Head Exam Head Exam: ATRAUMATIC, NORMOCEPHALIC - Eye Exam Eye Exam: EOMI, Normal appearance - ENT Exam ENT Exam: Mucous Membranes Moist - Neck Exam Neck Exam: Normal Inspection - Respiratory Exam Respiratory Exam: NORMAL BREATHING PATTERN. absent: Accessory Muscle Use - Cardiovascular Exam Cardiovascular Exam: RRR, +S1, +S2 - GI/Abdominal Exam GI & Abdominal Exam: Soft. absent: Tenderness, Rebound - Extremities Exam Extremities Exam: Normal Inspection. absent: Calf Tenderness - Neurological Exam Neurological Exam: Alert, Awake, CN II-XII Intact, Oriented x3 Neuro motor strength exam: Left Upper Extremity: 5, Right Upper Extremity: 5, Left Lower Extremity: 5, Right Lower Extremity: 5 Additional comments: MMSE normal except patient's 3 word recall was limited to one word, - Psychiatric Exam Psychiatric exam: Normal Affect, Normal Mood - Skin Skin Exam: Dry, Intact, Normal Color, Warm Assessment and Plan - Assessment and Plan (Free Text) Assessment: 48 year old female with a past medical history of depression, insomnia, chronic benzodiazepine use and SVT s/p ablatio who presented after having a 2-3 generalized, tonic clonic seizure in the setting of not taking her Ativan (for which she has been on for ten years) in two days time. Plan: 1) Seizures, likely secondary to Benzodiazepine withdrawal - Patient reports obtaining MRI yesterday at [facility] ED coincidentally; sister informed to bring the disc with her at her earliest convenience - Counselled patient on importance of taking her medications as directed - Starting patient on Trileptal 300 mg q12 for seizure protection - Video EEG interpreted as normal - Follow up with Dr. Vo as an outpatient Case was reviewed and discussed with attending physician, Dr. George
--- NOTE | 2019-02-08 09:24 | PCM.VEEG ---
Video EEG - Procedure Start Date: 02/07/19 Start Time: 17:15 End Date: 02/08/19 End Time: 09:10 Technical Summary: DATA ACQUISITION: This was a multichannel inpatient video-EEG, a minimum of 22 channels were uti lized, performed in accordance with recommendations specified by the [place] [employer] (Ancelmo Santiago et al. ACNS Guideline 1: Minimum Technical Requirements for Performing Clinical Electroencephalography. Journal of Clinical Neurophysiology 2016;33:303-7). The 10-20 electrode placement system was utilized in accordance with guidelines detailed by the International Federation of Clinical Neurophysiology (Anjali Smith et al. The Ten-Twenty Electrode System of the International Federation. Recommendations for the Practice of Clinical Neurophysiology: Guidelines of the International Federation of Clinical Physiology 1999; EEG Suppl. 52.). DATA REVIEW / SPIKE DETECTION / DIGITAL ANALYSIS: The entire EEG was scanned and reviewed. Synchronized audio and video recording were reviewed at the time of each alarm and whenever an abnormality or suspicious activity was noted. The entire recording was analyzed utilizing an automated digital spike and seizure analysis program and all automatic spike and seizure detections were manually reviewed. A compressed spectral array was displayed and reviewed alongside the raw EEG tracings. In addition, further analysis of the EEG was performed when abnormalities were identified, including montage changes, dipole source localization, and frequency band identification. Video portion of the study is necessary to correlate abnormal EEG activity with clinical behavior. This study was attended 24 hours per day. - Interpretation Description of the study: REASON FOR THE STUDY; 48 y/o woman with a history of epilepsy, admitted after a recurrent event, study was requested for events characterization. EEG Finding during wakefulness: During active states, the EEG was characterized by 14-25 Hz, 15-30 uV activity bilaterally in fronto-central regions. Resting wakefulness was characterized by a symmetric posterior dominant rhythm of 9 to 10 Hz, 30-50 uV, which was reactive to eye opening and closing. Drowsiness was associated with slow roving eye movements, slowing and fragmentation of the posterior dominant rhythm, and bilateral 4-7 Hz, 40-70 uV theta activity, sometimes with a shifting predominance. Hyperventilation and photic stimulation were not performed. EEG Finding during sleep: Light sleep was recorded and was characterized by fronto-central slowing at 5-7 H, 50-125 uV, sharp central vertex waves, bilateral sleep spindles, and K- complexes; shifting asymmetries were evident. Deeper stages of sleep were recorded and were characterized an increasing frequency of 1-4 Hz, 50-100 uV delta activity. REM sleep was also recorded and was characterized by mixed frequency (3-15 Hz) low voltage (< 20 uV) activity with clusters of rapid horizontal and vertical eye movements. There were no significant asymmetries noted during sleep. Interictal non-epileptiform abnormalities: None Interictal epileptiform abnormalities: None Ictal epileptiform abnormalities: None - Impression Impression: This is a normal inpatient Video EEG monitoring study.
--- NOTE | 2019-02-08 15:11 | CP.PCM.DIS ---
<DonalJohn - Last Filed: 02/08/19 14:54> Provider - Provider Date of Admission: 02/06/19 20:29 Attending physician: Robby Humphries MD Consults: 02/06/19 21:15 Physician Consult Routine Comment: Consulting Provider: Dagoberto George Consulting Physician: Dagoberto George Reason for Consult: seizures 02/06/19 22:29 Transition In Care/Readmission Reduction Routine Comment: Physician Instructions: Reason For Exam: hospitalized 1 mo Time Spent in preparation of Discharge (in minutes): 35 Hospital Course - Lab Results Lab Results: Most Recent Lab Values WBC 8.7 10^3/uL (4.5-11.0) 02/08/19 06:20 RBC 4.35 10^6/uL (3.5-6.1) 02/08/19 06:20 Hgb 13.1 g/dL (12.0-16.0) 02/08/19 06:20 Hct 40.0 % (36.0-48.0) 02/08/19 06:20 MCV 92.0 fl (80.0-105.0) 02/08/19 06:20 MCH 30.1 pg (25.0-35.0) 02/08/19 06:20 MCHC 32.8 g/dl (31.0-37.0) 02/08/19 06:20 RDW 13.7 % (11.5-14.5) 02/08/19 06:20 Plt Count 184 10^3/uL (120.0-450.0) 02/08/19 06:20 MPV 10.1 fl (7.0-11.0) 02/08/19 06:20 Neut % (Auto) 66.1 % (50.0-68.0) 02/08/19 06:20 Lymph % (Auto) 24.6 % (22.0-35.0) 02/08/19 06:20 [place] % (Auto) 6.7 % (1.0-6.0) H 02/08/19 06:20 Eos % (Auto) 2.4 % (1.5-5.0) 02/08/19 06:20 Baso % (Auto) 0.2 % (0.0-3.0) 02/08/19 06:20 Lymph # (Auto) 2.1 (1.2-3.4) 02/08/19 06:20 [place] # (Auto) 0.6 (0.1-0.6) 02/08/19 06:20 Eos # (Auto) 0.2 (0.0-0.7) 02/08/19 06:20 Baso # (Auto) 0.02 K/mm3 (0.0-2.0) 02/08/19 06:20 Absolute Neuts (auto) 5.71 (1.4-6.5) 02/08/19 06:20 D-Dimer, Quantitative 228 ng/mlDDU (0-243) 02/06/19 17:20 Sodium 139 mmol/L (132-148) 02/08/19 06:20 Potassium 4.0 mmol/L (3.6-5.0) 02/08/19 06:20 Chloride 105 mmol/L (98-107) 02/08/19 06:20 Carbon Dioxide 26 mmol/L (21-33) 02/08/19 06:20 Anion Gap 11 (10-20) 02/08/19 06:20 BUN 8 mg/dL (7-21) 02/08/19 06:20 Creatinine 0.5 mg/dl (0.7-1.2) L 02/08/19 06:20 Est GFR ( Amer) > 60 02/08/19 06:20 Est GFR (Non-Af Amer) > 60 02/08/19 06:20 Random Glucose 99 mg/dL (70-110) 02/08/19 06:20 Calcium 8.7 mg/dL (8.4-10.5) 02/08/19 06:20 Phosphorus 3.2 mg/dL (2.5-4.5) 02/06/19 17:20 Magnesium 2.1 mg/dL (1.7-2.2) 02/07/19 06:00 Total Bilirubin 0.3 mg/dL (0.2-1.3) 02/08/19 06:20 AST 36 U/L (14-36) 02/08/19 06:20 ALT 22 U/L (7-56) 02/08/19 06:20 Alkaline Phosphatase 106 U/L (38-126) 02/08/19 06:20 Total Creatine Kinase 435 U/L (35-230) H 02/07/19 11:57 CK-MB (CK-2) 1.2 ng/mL (0.0-3.6) 02/07/19 11:57 CK-MB (CK-2) % Cancelled 02/07/19 11:57 Troponin I < 0.01 ng/mL 02/07/19 06:00 Total Protein 7.0 g/dL (5.8-8.3) 02/08/19 06:20 Albumin 4.1 g/dL (3.0-4.8) 02/08/19 06:20 Globulin 2.9 gm/dL 02/08/19 06:20 Albumin/Globulin Ratio 1.4 (1.1-1.8) 02/08/19 06:20 Vitamin B12 540 pg/mL (239-931) 02/07/19 06:00 Folate 13.4 ng/mL 02/07/19 06:00 Free T4 0.97 ng/dL (0.78-2.19) 02/07/19 06:00 TSH 3rd Generation 0.93 mIU/mL (0.46-4.68) 02/07/19 06:00 Urine Color Yellow (YELLOW) 02/06/19 21:30 Urine Appearance Clear (CLEAR) 02/06/19 21:30 Urine pH 6.5 (4.7-8.0) 02/06/19 21:30 Ur Specific [place] 1.010 (1.005-1.035) 02/06/19 21:30 Urine Protein Negative mg/dL (<30 mg/dL) 02/06/19 21:30 Urine Glucose (UA) Negative mg/dL (NEGATIVE) 02/06/19 21:30 Urine Ketones Negative mg/dL (NEGATIVE) 02/06/19 21:30 Urine Blood Negative (NEGATIVE) 02/06/19 21:30 Urine Nitrate Negative (NEGATIVE) 02/06/19 21:30 Urine Bilirubin Negative (NEGATIVE) 02/06/19 21:30 Urine Urobilinogen 0.2 E.U./dL (<1 E.U./dL) 02/06/19 21:30 Ur Leukocyte Esterase Negative Ricardo/uL (NEGATIVE) 02/06/19 21:30 - Hospital Course Hospital Course: John Mansfield, PGY1 Discharge Summary for Dr. Humphries Patient is a 48 year old female with a past medical history of seizures (Started 1 year ago; not on medication), SVT (s/p ablation), chronic insomnia, anxiety, depression, who presented to [facility] for a witnessed seizure prior to arrival. Patient's sister was present on admission and reported that she and patient were going [place] [employer] when patient suddenly collapsed with a 2 minute generalized tonic-clonic seizure, which eventually resolved on its own. Patient was post-ictal after incident. She had biting of the left side of her cheek but denied bowel/bladder incontinence. Patient last followed up with her Neurologist at [facility] for her seizures but says she was never on any medication for her seizures. Patient also endorses chronic insomnia. Patient admitted to [facility] for seizures. Her mental status improved during arrival to ED. Neurology was consulted for patient's seizures. CT Head was negative for acute issues. Patient had no signs of infection either, no fever or leukocytosis. She recently had an MRI CD from an outpatient visit at [facility] ED, which was read as normal findings. Patient initially started on keppra but transitioned to PO Trileptal 300mg q12. She had no seizure activity during hospital course. Her neurological exam is grossly normal. EEG was done and normal. It was discovered that patient was taking flexeril and tramadol as outpatient; she was explained that these medications lower seizure threshold and she should stop taking them. She will also be prescribed Trileptal on discharge. Upon reviewing all labs, vitals, and imaging, patient is hemodynamically stable for discharge to home. She will follow up with her PMD and Neurologist upon discharge. Also she was explained that she should not be driving or operating a vehicle because of her seizures. DMV was contacted and informed. Given these findings, patient is safe for discharge home. Discharge Exam - Head Exam Head Exam: ATRAUMATIC, NORMAL INSPECTION, NORMOCEPHALIC - Eye Exam Eye Exam: Normal appearance Pupil Exam: NORMAL ACCOMODATION, PERRL - ENT Exam ENT Exam: Mucous Membranes Moist - Neck Exam Neck exam: Normal Inspection - Respiratory Exam Respiratory Exam: Clear to PA & Lateral, NORMAL BREATHING PATTERN. absent: Accessory Muscle Use, Chest Wall Tenderness, Rales, Rhonchi, Wheezes - Cardiovascular Exam Cardiovascular Exam: +S1, +S2 - GI/Abdominal Exam GI & Abdominal Exam: Soft. absent: Guarding, Rebound, Tenderness - Extremities Exam Extremities exam: normal capillary refill, normal inspection, pedal pulses present - Neurological Exam Neurological exam: Alert, CN II-XII Intact, Normal Gait, Oriented x3 - Psychiatric Exam Psychiatric exam: Normal Affect, Normal Mood - Skin Skin Exam: Dry, Intact, Normal Color, Warm Discharge Plan - Discharge Medications Prescriptions: OXcarbazepine [Trileptal] 300 mg PO Q12 #28 tab - Follow Up Plan Condition: STABLE Disposition: HOME/ ROUTINE Instructions: Seizures, Adult (DC) Additional Instructions: - Please follow up with your Primary Care Doctor (Dr. Gomez) within 3-4 days of discharge. Please discuss the following changes in medications with your Primary Care Doctor. - Please follow up with the Neurologist (Dr. George) within 1 week of discharge. - You will be discharged on Trileptal 300mg twice a day for your seizures. Please take as prescribed. - Please do not drive or operate a vehicle because of your seizures. The Department of [employer] is notified for your safety. - Please resume your home medications as prescribed. But, DO NOT take the following home medications as they increase your risk for seizures: - DO NOT take Bupropion - DO NOT take Tramadol - DO NOT take Flexeril - Please return to the nearest emergency department if your symptoms worsen or reoccur. Referrals: Dagoberto George MD [Staff Provider] - Marcin Gomez MD [Family Provider] - <Robby Humphries - Last Filed: 02/09/19 11:08> Provider - Provider Date of Admission: 02/06/19 20:29 Attending physician: Robby Humphries MD Consults: 02/06/19 21:15 Physician Consult Routine Comment: Consulting Provider: Dagoberto George Consulting Physician: Dagoberto George Reason for Consult: seizures 02/06/19 22:29 Transition In Care/Readmission Reduction Routine Comment: Physician Instructions: Reason For Exam: hospitalized 1 mo Hospital Course - Lab Results Lab Results: Most Recent Lab Values WBC 8.7 10^3/uL (4.5-11.0) 02/08/19 06:20 RBC 4.35 10^6/uL (3.5-6.1) 02/08/19 06:20 Hgb 13.1 g/dL (12.0-16.0) 02/08/19 06:20 Hct 40.0 % (36.0-48.0) 02/08/19 06:20 MCV 92.0 fl (80.0-105.0) 02/08/19 06:20 MCH 30.1 pg (25.0-35.0) 02/08/19 06:20 MCHC 32.8 g/dl (31.0-37.0) 02/08/19 06:20 RDW 13.7 % (11.5-14.5) 02/08/19 06:20 Plt Count 184 10^3/uL (120.0-450.0) 02/08/19 06:20 MPV 10.1 fl (7.0-11.0) 02/08/19 06:20 Neut % (Auto) 66.1 % (50.0-68.0) 02/08/19 06:20 Lymph % (Auto) 24.6 % (22.0-35.0) 02/08/19 06:20 [place] % (Auto) 6.7 % (1.0-6.0) H 02/08/19 06:20 Eos % (Auto) 2.4 % (1.5-5.0) 02/08/19 06:20 Baso % (Auto) 0.2 % (0.0-3.0) 02/08/19 06:20 Lymph # (Auto) 2.1 (1.2-3.4) 02/08/19 06:20 [place] # (Auto) 0.6 (0.1-0.6) 02/08/19 06:20 Eos # (Auto) 0.2 (0.0-0.7) 02/08/19 06:20 Baso # (Auto) 0.02 K/mm3 (0.0-2.0) 02/08/19 06:20 Absolute Neuts (auto) 5.71 (1.4-6.5) 02/08/19 06:20 D-Dimer, Quantitative 228 ng/mlDDU (0-243) 02/06/19 17:20 Sodium 139 mmol/L (132-148) 02/08/19 06:20 Potassium 4.0 mmol/L (3.6-5.0) 02/08/19 06:20 Chloride 105 mmol/L (98-107) 02/08/19 06:20 Carbon Dioxide 26 mmol/L (21-33) 02/08/19 06:20 Anion Gap 11 (10-20) 02/08/19 06:20 BUN 8 mg/dL (7-21) 02/08/19 06:20 Creatinine 0.5 mg/dl (0.7-1.2) L 02/08/19 06:20 Est GFR ( Amer) > 60 02/08/19 06:20 Est GFR (Non-Af Amer) > 60 02/08/19 06:20 Random Glucose 99 mg/dL (70-110) 02/08/19 06:20 Calcium 8.7 mg/dL (8.4-10.5) 02/08/19 06:20 Phosphorus 3.2 mg/dL (2.5-4.5) 02/06/19 17:20 Magnesium 2.1 mg/dL (1.7-2.2) 02/07/19 06:00 Total Bilirubin 0.3 mg/dL (0.2-1.3) 02/08/19 06:20 AST 36 U/L (14-36) 02/08/19 06:20 ALT 22 U/L (7-56) 02/08/19 06:20 Alkaline Phosphatase 106 U/L (38-126) 02/08/19 06:20 Total Creatine Kinase 435 U/L (35-230) H 02/07/19 11:57 CK-MB (CK-2) 1.2 ng/mL (0.0-3.6) 02/07/19 11:57 CK-MB (CK-2) % Cancelled 02/07/19 11:57 Troponin I < 0.01 ng/mL 02/07/19 06:00 Total Protein 7.0 g/dL (5.8-8.3) 02/08/19 06:20 Albumin 4.1 g/dL (3.0-4.8) 02/08/19 06:20 Globulin 2.9 gm/dL 02/08/19 06:20 Albumin/Globulin Ratio 1.4 (1.1-1.8) 02/08/19 06:20 Vitamin B12 540 pg/mL (239-931) 02/07/19 06:00 Folate 13.4 ng/mL 02/07/19 06:00 Free T4 0.97 ng/dL (0.78-2.19) 02/07/19 06:00 TSH 3rd Generation 0.93 mIU/mL (0.46-4.68) 02/07/19 06:00 Urine Color Yellow (YELLOW) 02/06/19 21:30 Urine Appearance Clear (CLEAR) 02/06/19 21:30 Urine pH 6.5 (4.7-8.0) 02/06/19 21:30 Ur Specific [place] 1.010 (1.005-1.035) 02/06/19 21:30 Urine Protein Negative mg/dL (<30 mg/dL) 02/06/19 21:30 Urine Glucose (UA) Negative mg/dL (NEGATIVE) 02/06/19 21:30 Urine Ketones Negative mg/dL (NEGATIVE) 02/06/19 21:30 Urine Blood Negative (NEGATIVE) 02/06/19 21:30 Urine Nitrate Negative (NEGATIVE) 02/06/19 21:30 Urine Bilirubin Negative (NEGATIVE) 02/06/19 21:30 Urine Urobilinogen 0.2 E.U./dL (<1 E.U./dL) 02/06/19 21:30 Ur Leukocyte Esterase Negative Ricardo/uL (NEGATIVE) 02/06/19 21:30 Attending/Attestation - Attestation I have personally seen and examined this patient.: Yes I have fully participated in the care of the patient.: Yes I have reviewed all pertinent clinical information, including history, physical exam and plan: Yes Notes (Text): 02/09/19 11:03 Medical record note made by the resident after discussion with my direction and input after the patient was personally seen and examined by me. I have reviewed the chart and agree that the record accurately reflects by personal performance of the history, physical exam, data review, and medical decision-making, in the course for the patient. I have also personally directed the plan of care. 48 yrs old female was admitted with H/O tonic clonic seizure, as per patient this is the 3rd episode in one years. CT scan of head is negative.Patient already has MRI brain as out patient. EEG here in hospital was negative for epilepticus focus. Patient was evaluated by Neurology and has been started on Trileptal. Due to recurrent episode of seizures, she has been advised not to drive.This was discussed in detail with her. She will follow up with Neurology and PCP. Management plan was discussed in detail with patient. Education was provided.
[2019-02-08 18:22] VITALS: BP 125/87; PULSE 102; TEMP 97.3
== END 2019-02-08 11:00 | disposition home or self-care (01) ==
LOC: ED 16:49 → ERH 20:29 → 3RSO 21:47 → ERH 23:13 → 3RSO 23:14
PROVIDERS: ADMIT Internal Medicine; ATTEND Internal Medicine
DX: G40.409 Other generalized epilepsy and epileptic syndromes, not intractable, without status epilepticus (principal); F13.239 Sedative, hypnotic or anxiolytic dependence with withdrawal, unspecified; I47.1 Supraventricular tachycardia; J43.9 Emphysema, unspecified; F32.9 Major depressive disorder, single episode, unspecified; F51.04 Psychophysiologic insomnia; Z85.828 Personal history of other malignant neoplasm of skin
CPT/HCPCS: 36415; 70450; 80053; 81003; 82550; 82553; 82607; 82746; 83735; 84100; 84439; 84443; 84484; 85025; 85378; 93005; 95951; 96374; 99285; G0378; J1885; J1953; J2060; J7030